=== PATIENT | female | born 1985 ===

== ENCOUNTER 2017-05-13 06:18 | Day surgery (SDC) | payer OTHER ==
[2017-05-13] MEDS: Bupivacaine-Epi 0.25%-1:200,000 PF Inj ONE ×2 (07:42→08:43)
[2017-05-13] MEDS: Lidocaine 1% Inj (20ml) ONE ×2 (07:43→08:43)
[2017-05-13] MEDS ORDERED: Lactated Ringer's 1,000 ML IV ONE ×2 (07:43)
[2017-05-13] MEDS: ceFAZolin IV 2 gm in Dextrose 2 GM/50 ML BAG IVPB ONE ×2 (07:43→08:34)
[2017-05-13] MEDS ORDERED: Midazolam 2 MG/2 ML VIAL ONE (08:26)
[2017-05-13] MEDS ORDERED: Propofol 10 mg/ml Inj (20 ML) ONE (08:27)
[2017-05-13] MEDS ORDERED: Neostigmine Methylsulfate 3mg/3ml Syringe IV ONE (09:48)
[2017-05-13] MEDS ORDERED: Oxycodone/Acetaminophen 5/325 mg Tab PO PRN (10:10)
--- NOTE | 2017-05-13 10:13 | PCM.SURG1 ---
Surgeon's Initial Post Op Note - Surgeon's Notes Surgeon: Goldy Gum Puller: Yang PGY-3, Rich PGY-1 Type of Anesthesia: General Endo, Local Pre-Operative Diagnosis: Umbilical hernia Operative Findings: see report Post-Operative Diagnosis: Umbilical hernia Operation Performed: Laparascopic umbilical hernia repair with mesh Specimen/Specimens Removed: umbilical hernia sac Estimated Blood Loss: EBL {In ML}: 10 Blood Products Given: N/A Drains Used: No Drains Post-Op Condition: Good Date of Surgery/Procedure: 05/13/17 Time of Surgery/Procedure: 10:13
[2017-05-13 10:33] VITALS: O2SAT 100
[2017-05-13] MEDS: HYDROmorphone 0.5 mg/0.5 ml ISec IVP PRN ×3 (10:38→12:09)
[2017-05-13] MEDS ORDERED: Lactated Ringer's 500 ML IV ONE (11:30)
[2017-05-13 12:57] VITALS: BP 110/70; PULSE 80; RESP 18; TEMP 97
--- NOTE | 2017-05-14 02:11 | OP ---
PROCEDURE DATE: 05/13/2017 PREOPERATIVE DIAGNOSIS: Umbilical hernia. POSTOPERATIVE DIAGNOSIS: Umbilical hernia. PROCEDURE DONE: Laparoscopic umbilical hernia repair with a mesh. SURGEON: Ric Winslow MD. ASSISTANTS: Venkatesh Soria, PGY-2 resident; and Timmy Villanueva, PGY-1 resident. ANESTHESIA: General endotracheal tube anesthesia. ESTIMATED BLOOD LOSS: Around 10 mL. DRAINS: None. PATHOLOGY: Hernial sac and content were sent for the pathology. COMPLICATIONS: None. INTRAOPERATIVE FINDINGS: The patient had an approximately 2 x 2 cm umbilical hernia containing preperitoneal fat and the sac. DESCRIPTION OF PROCEDURE: On intraoperative steps, this is a 31-year-old female who was diagnosed with umbilical hernia and patient was consented for the laparoscopic umbilical hernia repair with a mesh, brought to the OR, placed supine on the operating table. After induction of the anesthesia, the abdomen was prepped and draped in the usual sterile fashion. A 5-mm incision was made in the left upper quadrant using the Visiport technique, peritoneal cavity was entered, pneumo was created. Another 5 and 8 mm ports were placed in the left flank. After that, grasper and dissector was introduced. Umbilical hernia was reduced back into the peritoneal cavity and specimen was sent off the table for the pathology. The defect was closed with #2 Ethibond interrupted transfascial sutures, and a 9-cm mesh was implanted. After proper implantation of the mesh, all the ports were then taken out under vision, and pneumo was deflated. The umbilical wound site was closed in 2 layers with 2-0 Vicryl and 4-0 Monocryl, and all the port sites were closed in 2 layers, subcu with 2-0 Vicryl, skin with 4-0 Monocryl and dry sterile dressing was applied. Patient tolerated the procedure well. Count of the instrument and gauze was correct. There was no apparent complication. Patient was extubated in OR and sent to the Postanesthesia Care Unit in stable condition. Ric Winslow MD
== END 2017-05-13 13:50 | disposition home or self-care (01) ==
LOC: C.SDS 06:18
PROVIDERS: ATTEND Surgery Surgical Critical Care
DX: K42.9 Umbilical hernia without obstruction or gangrene (principal)
CPT/HCPCS: 49652; 88302; C1781; J0131; J0690; J1100; J1170; J1885; J2250; J2405; J2704; J2710; J3010; J7120